=== PATIENT | female | born 1955 | race Caucasian/White ===

== ENCOUNTER 2016-12-16 11:41 | Emergency (ER) | payer OTHER ==
[~2016-12-16] VITALS: Ht 162.6 cm; Wt 78.2 kg
[2016-12-16] MEDS ORDERED: QUET25TA PO (11:54)
[2016-12-16] MEDS ORDERED: PROP10TA73 PO (11:54)
[2016-12-16] MEDS ORDERED: LISI-660 PO (11:54)
[2016-12-16] MEDS ORDERED: AMLO-511 PO (11:54)
[2016-12-16 14:10] VITALS: BP 165/80
== END 2016-12-16 15:01 | disposition home or self-care (01) ==
LOC: EMS 11:42
DX: F41.9 Anxiety disorder, unspecified (principal); F31.9 Bipolar disorder, unspecified; I10 Essential (primary) hypertension; K21.9 Gastro-esophageal reflux disease without esophagitis
CPT/HCPCS: 99284

== ENCOUNTER 2016-12-19 11:44 | Inpatient (IN) | payer MEDICAID, SELFPAY ==
[~2016-12-19] VITALS: Ht 162.6 cm; Wt 75.8 kg
[~2016-12-19 11:44] MED LIST: AMLO-511 PO; LISI-660 PO; PROP10TA73 PO; QUET25TA PO
[2016-12-19] MEDS ORDERED: HydrOXYzine PAMOATE 50 MG CAPSULE PO PRN (14:00)
[2016-12-19] MEDS ORDERED: PROMETHAZINE HCL 25 MG TABLET PO PRN (14:00)
[2016-12-19] MEDS ORDERED: ZOLPIDEM TARTRATE 10 MG TABLET PO PRN (14:00)
[2016-12-19] MEDS ORDERED: TUBERCULIN, PURIFIED PROTEIN DERIVATIVE 5 TU/0.1 ML SYG ID ONE (14:00)
[2016-12-19] MEDS ORDERED: QUEtiapine FUMARATE 100 MG TABLET PO PRN (14:00)
[2016-12-19] MEDS ORDERED: MAG HYDROX/AL HYDROX/SIMETH ES 30 ML SUSPENSION UDCUP PO PRN (14:00)
[2016-12-19] MEDS ORDERED: GuaiFENesin/D-METHORPHAN [SUGAR-FREE] 200-20MG/10 ML SYRUP UDCUP PO PRN (14:00)
[2016-12-19] MEDS ORDERED: MAGNESIUM HYDROXIDE SUSPENSION 30 ML UDCUP PO PRN (14:00)
[2016-12-19] MEDS ORDERED: LOPERAMIDE HCL 2 MG CAPSULE PO PRN (14:00)
[2016-12-19] MEDS ORDERED: ACETAMINOPHEN 325 MG TABLET PO PRN (14:00)
[2016-12-19 15:45] VITALS: BP 155/84
[2016-12-19] MEDS: QUEtiapine FUMARATE 25 MG TABLET PO SCH (17:59)
[2016-12-19] MEDS: THIAMINE HCL 100 MG TABLET PO SCH (17:59)
[2016-12-19] MEDS: LORazepam 1 MG TABLET PO PRN (18:33)
[2016-12-19 18:59] VITALS: BP 134/89
[2016-12-19] MEDS: QUEtiapine FUMARATE 100 MG TABLET PO SCH (20:20)
[2016-12-20 06:00] VITALS: BP 130/80
[2016-12-20 08:20] LABS: BASOPHILS % (AUTO) 0.4 % (0.0-2.0); EOSINOPHILS % (AUTO) 1.3 % (1.0-6.0); HEMATOCRIT 37.1 % (36-46); HEMOGLOBIN 12.8 g/dL (12.0-16.0); LYMPHOCYTES # (AUTO) 2.2 K/uL (1.0-4.8); LYMPHOCYTES % (AUTO) 36.7 % (22.0-44.0); MEAN CORPUSCULAR HEMOGLOBIN 31.1 pg (26.0-34.0); MEAN CORPUSCULAR HGB CONC 34.5 G/dL (31.0-37.0); MEAN CORPUSCULAR VOLUME 90 fL (80-100); MONOCYTES # (AUTO) 0.5 K/uL (0.1-1.0); MONOCYTES % (AUTO) 8.9 % (2.0-9.0); NEUTROPHILS # (AUTO) 3.2 K/uL (1.8-7.7); NEUTROPHILS % (AUTO) 52.7 % (40.0-70.0); PLATELET COUNT (AUTO) 204 K/uL (150-450); RED BLOOD CELL COUNT(AUTO) 4.12 MIL/uL (4.00-5.20); RED CELL DISTRIBUTION WIDTH 14.1 % (11.5-14.5); WHITE BLOOD COUNT (AUTO) 6.1 K/uL (4.5-11.0)
[2016-12-20 08:23] VITALS: BP 148/90
[2016-12-20 08:32] LABS: HEMOGLOBIN A1C 6.1 % (4.5-6.2)
[2016-12-20] MEDS: MULTIVITAMINS WITH MINERALS, THERAPEUTIC TABLET PO SCH (08:48)
[2016-12-20] MEDS: QUEtiapine FUMARATE 25 MG TABLET PO SCH ×3 (08:49→16:20)
[2016-12-20] MEDS: FOLIC ACID 1 MG TABLET PO SCH (08:50)
[2016-12-20] MEDS: THIAMINE HCL 100 MG TABLET PO SCH ×2 (08:50→16:20)
[2016-12-20 09:49] LABS: ALANINE AMINOTRANSFERASE 19 U/L (12-78); ALBUMIN 3.6 g/dL (3.4-5.0); ANION GAP 7 mmol/L (8-16); ASPARTATE AMINOTRANSFERASE 17 U/L (15-37); BILIRUBIN,TOTAL 0.5 mg/dL (0.1-1.0); CALCIUM, TOTAL 9.2 mg/dL (8.8-10.5); CARBON DIOXIDE 29 mmol/L (22-29); CHLORIDE 105 mmol/L (98-107); CHOL/HDL RATIO 3.9 (3.9-5.7); GLOMERULAR FILTR. RATE CALC > 60 mL/min (>60); POTASSIUM 3.3 mmol/L (3.5-5.1); SODIUM SERUM 141 mmol/L (136-145); THYROID STIMULATING HORMONE 0.81 uIU/mL (0.36-3.74); TOTAL PROTEIN, SERUM 6.9 g/dL (6.4-8.2); UREA NITROGEN, BLOOD 21 mg/dL (7-18)
[2016-12-20 16:05] VITALS: BP 140/84
[2016-12-20] MEDS: PROPRANOLOL HCL 10 MG TABLET PO SCH (16:19)
[2016-12-20] MEDS: AmLODIPine BESYLATE 5 MG TABLET PO SCH (16:19)
[2016-12-20] MEDS: LISINOPRIL 5 MG TABLET PO SCH (16:20)
[2016-12-20] MEDS ORDERED: POTASSIUM CHLORIDE 20 MEQ ER TABLET PO ONE (18:00)
[2016-12-20] MEDS: QUEtiapine FUMARATE 100 MG TABLET PO SCH (20:38)
[2016-12-21 00:01] VITALS: BP 111/60
[2016-12-21 09:19] VITALS: BP 138/87
[2016-12-21] MEDS: AmLODIPine BESYLATE 5 MG TABLET PO SCH (09:29)
[2016-12-21] MEDS: THIAMINE HCL 100 MG TABLET PO SCH ×2 (09:29→16:47)
[2016-12-21] MEDS: LISINOPRIL 5 MG TABLET PO SCH (09:29)
[2016-12-21] MEDS: MULTIVITAMINS WITH MINERALS, THERAPEUTIC TABLET PO SCH (09:29)
[2016-12-21] MEDS: QUEtiapine FUMARATE 25 MG TABLET PO SCH ×3 (09:29→16:48)
[2016-12-21] MEDS: PROPRANOLOL HCL 10 MG TABLET PO SCH (09:29)
[2016-12-21] MEDS: FOLIC ACID 1 MG TABLET PO SCH (09:29)
[2016-12-21] MEDS: LamoTRIgine 25 MG TABLET PO SCH (09:29)
[2016-12-21 16:45] VITALS: BP 150/98
[2016-12-21] MEDS: LORazepam 1 MG TABLET PO PRN (17:11)
[2016-12-21 18:05] VITALS: BP_SYST 15; BP_SYST 150; BP_DIAS 97
[2016-12-21] MEDS ORDERED: LISINOPRIL 5 MG TABLET PO ONE (19:00)
[2016-12-21] MEDS ORDERED: PROPRANOLOL HCL 10 MG TABLET PO ONE (19:00)
[2016-12-21 20:12] VITALS: BP 137/73
[2016-12-21] MEDS: QUEtiapine FUMARATE 100 MG TABLET PO SCH (20:36)
[2016-12-22 02:51] VITALS: BP 116/66
[2016-12-22] MEDS: AmLODIPine BESYLATE 5 MG TABLET PO SCH (08:09)
[2016-12-22] MEDS: QUEtiapine FUMARATE 25 MG TABLET PO SCH ×2 (08:09→15:59)
[2016-12-22] MEDS: LamoTRIgine 25 MG TABLET PO SCH (08:09)
[2016-12-22] MEDS: FOLIC ACID 1 MG TABLET PO SCH (08:09)
[2016-12-22] MEDS: LISINOPRIL 5 MG TABLET PO SCH (08:09)
[2016-12-22] MEDS: MULTIVITAMINS WITH MINERALS, THERAPEUTIC TABLET PO SCH (08:09)
[2016-12-22] MEDS: THIAMINE HCL 100 MG TABLET PO SCH ×2 (08:09→15:56)
[2016-12-22] MEDS: PROPRANOLOL HCL 10 MG TABLET PO SCH (08:09)
[2016-12-22 08:20] VITALS: BP 180/103
[2016-12-22 10:16] VITALS: BP 156/94
[2016-12-22] MEDS ORDERED: LAMO25 PO (11:50)
[2016-12-22] MEDS ORDERED: QUET100T33 PO (11:50)
[2016-12-22] MEDS ORDERED: QUET25TA34 PO (11:50)
[2016-12-22 16:19] VITALS: BP 144/76
[2016-12-22] MEDS: LORazepam 1 MG TABLET PO PRN (17:59)
[2016-12-22 20:25] VITALS: BP 138/75
[2016-12-22] MEDS: QUEtiapine FUMARATE 100 MG TABLET PO SCH (20:31)
[2016-12-23 07:18] VITALS: BP 135/72
[2016-12-23] MEDS: LORazepam 1 MG TABLET PO PRN ×2 (07:53→12:42)
[2016-12-23 08:00] VITALS: BP 162/96
[2016-12-23] MEDS: LISINOPRIL 5 MG TABLET PO SCH (08:42)
[2016-12-23] MEDS: AmLODIPine BESYLATE 5 MG TABLET PO SCH (08:42)
[2016-12-23] MEDS: LamoTRIgine 25 MG TABLET PO SCH (08:42)
[2016-12-23] MEDS: QUEtiapine FUMARATE 25 MG TABLET PO SCH (08:42)
[2016-12-23] MEDS: PROPRANOLOL HCL 10 MG TABLET PO SCH (08:42)
[2016-12-23] MEDS: THIAMINE HCL 100 MG TABLET PO SCH (08:42)
[2016-12-23] MEDS: FOLIC ACID 1 MG TABLET PO SCH (08:43)
[2016-12-23] MEDS: MULTIVITAMINS WITH MINERALS, THERAPEUTIC TABLET PO SCH (08:43)
[2016-12-23] MEDS ORDERED: LAMO25 PO (09:34)
[2016-12-23] MEDS ORDERED: QUET25TA PO (09:34)
== END 2016-12-23 13:25 | disposition home or self-care (01) | DRG 753 ==
LOC: B2S 15:29
PROVIDERS: ADMIT Psychiatry & Neurology Psychiatry; ATTEND Psychiatry & Neurology Psychiatry
DX: F31.9 Bipolar disorder, unspecified (principal); Z91.19 Patient's noncompliance with other medical treatment and regimen; F41.0 Panic disorder [episodic paroxysmal anxiety]; K21.9 Gastro-esophageal reflux disease without esophagitis; M19.90 Unspecified osteoarthritis, unspecified site; Z68.28 Body mass index [BMI] 28.0-28.9, adult
CPT/HCPCS: 83036; 84132; 84439; 84443; 86592

== ENCOUNTER 2016-12-28 19:33 | Inpatient (IN) | payer MEDICAID, SELFPAY ==
[~2016-12-28] VITALS: Ht 162.6 cm; Wt 76.7 kg
[~2016-12-28 19:33] MED LIST changes: +LAMO25 PO; +QUET100T33 PO; +QUET25TA34 PO
[2016-12-28 22:48] VITALS: BP 106/68
[2016-12-28] MEDS ORDERED: ZOLPIDEM TARTRATE 10 MG TABLET PO PRN (23:00)
[2016-12-28] MEDS ORDERED: QUEtiapine FUMARATE 100 MG TABLET PO PRN (23:00)
[2016-12-29 00:43] VITALS: BP 108/69
[2016-12-29 07:49] LABS: BASOPHILS % (AUTO) 0.4 % (0.0-2.0); EOSINOPHILS % (AUTO) 1.9 % (1.0-6.0); HEMATOCRIT 36.1 % (36-46); HEMOGLOBIN 12.3 g/dL (12.0-16.0); LYMPHOCYTES # (AUTO) 2.9 K/uL (1.0-4.8); LYMPHOCYTES % (AUTO) 38.4 % (22.0-44.0); MEAN CORPUSCULAR HEMOGLOBIN 31.3 pg (26.0-34.0); MEAN CORPUSCULAR HGB CONC 34.1 G/dL (31.0-37.0); MEAN CORPUSCULAR VOLUME 92 fL (80-100); MONOCYTES # (AUTO) 0.7 K/uL (0.1-1.0); MONOCYTES % (AUTO) 9.5 % (2.0-9.0); NEUTROPHILS # (AUTO) 3.7 K/uL (1.8-7.7); NEUTROPHILS % (AUTO) 49.8 % (40.0-70.0); PLATELET COUNT (AUTO) 188 K/uL (150-450); RED BLOOD CELL COUNT(AUTO) 3.94 MIL/uL (4.00-5.20); RED CELL DISTRIBUTION WIDTH 13.9 % (11.5-14.5); WHITE BLOOD COUNT (AUTO) 7.5 K/uL (4.5-11.0)
[2016-12-29 08:17] LABS: ALANINE AMINOTRANSFERASE 22 U/L (12-78); ALBUMIN 3.3 g/dL (3.4-5.0); ANION GAP 6 mmol/L (8-16); ASPARTATE AMINOTRANSFERASE 13 U/L (15-37); BILIRUBIN,TOTAL 0.3 mg/dL (0.1-1.0); CALCIUM, TOTAL 9.4 mg/dL (8.8-10.5); CARBON DIOXIDE 31 mmol/L (22-29); CHLORIDE 106 mmol/L (98-107); CHOL/HDL RATIO 4.1 (3.9-5.7); CREATININE 0.85 mg/dL (0.60-1.30); GLOMERULAR FILTR. RATE CALC > 60 mL/min (>60); SODIUM SERUM 143 mmol/L (136-145); THYROID STIMULATING HORMONE 1.02 uIU/mL (0.36-3.74); TOTAL PROTEIN, SERUM 6.7 g/dL (6.4-8.2); UREA NITROGEN, BLOOD 17 mg/dL (7-18)
[2016-12-29 08:45] VITALS: BP 148/72
[2016-12-29] MEDS ORDERED: PROPRANOLOL HCL 10 MG TABLET PO SCH (10:15)
[2016-12-29] MEDS: AmLODIPine BESYLATE 5 MG TABLET PO SCH (10:40)
[2016-12-29] MEDS: LISINOPRIL 5 MG TABLET PO SCH (10:40)
[2016-12-29] MEDS: LORazepam 1 MG TABLET PO PRN (13:12)
[2016-12-29 14:50] VITALS: BP 159/89
[2016-12-29] MEDS ORDERED: PROPRANOLOL HCL 10 MG TABLET PO ONE (15:00)
[2016-12-29] MEDS ORDERED: PROPRANOLOL HCL 20 MG TABLET PO ONE (15:00)
[2016-12-29 17:26] VITALS: BP 150/97
[2016-12-29] MEDS: QUEtiapine FUMARATE 25 MG TABLET PO SCH (17:34)
[2016-12-29 19:00] VITALS: BP 138/78
[2016-12-29] MEDS: QUEtiapine FUMARATE 100 MG TABLET PO SCH (21:24)
[2016-12-30 06:24] VITALS: BP 157/96
[2016-12-30] MEDS: QUEtiapine FUMARATE 25 MG TABLET PO SCH ×2 (08:42→16:07)
[2016-12-30] MEDS: AmLODIPine BESYLATE 5 MG TABLET PO SCH (08:42)
[2016-12-30] MEDS: LISINOPRIL 5 MG TABLET PO SCH (08:42)
[2016-12-30] MEDS: PROPRANOLOL HCL 20 MG TABLET PO SCH (08:42)
[2016-12-30 11:33] VITALS: BP 150/78
[2016-12-30] MEDS: LORazepam 1 MG TABLET PO PRN (15:57)
[2016-12-30 18:07] VITALS: BP 128/78
[2016-12-30] MEDS: QUEtiapine FUMARATE 100 MG TABLET PO SCH (20:23)
[2016-12-31 06:08] VITALS: BP 130/80
[2016-12-31] MEDS: PROPRANOLOL HCL 20 MG TABLET PO SCH (08:17)
[2016-12-31] MEDS: LISINOPRIL 5 MG TABLET PO SCH (08:17)
[2016-12-31] MEDS: AmLODIPine BESYLATE 5 MG TABLET PO SCH (08:17)
[2016-12-31] MEDS: QUEtiapine FUMARATE 25 MG TABLET PO SCH ×2 (08:17→16:47)
[2016-12-31] MEDS: LORazepam 1 MG TABLET PO PRN ×2 (10:16→15:04)
[2016-12-31 12:25] VITALS: BP 143/96
[2016-12-31] MEDS ORDERED: AmLODIPine BESYLATE 5 MG TABLET PO ONE (14:00)
[2016-12-31] MEDS ORDERED: LISINOPRIL 10 MG TABLET PO ONE (14:00)
[2016-12-31 16:35] VITALS: BP 143/90
[2016-12-31 18:00] VITALS: BP 108/69
[2016-12-31 20:04] VITALS: BP_SYST 106; BP_SYST 110; BP_DIAS 66; BP_DIAS 70
[2016-12-31] MEDS: QUEtiapine FUMARATE 100 MG TABLET PO SCH (21:19)
[2016-12-31 22:00] VITALS: BP 123/75
[2017-01-01 01:25] VITALS: BP 118/66
[2017-01-01] MEDS: PROPRANOLOL HCL 20 MG TABLET PO SCH (08:15)
[2017-01-01] MEDS: AmLODIPine BESYLATE 10 MG TABLET PO SCH (08:15)
[2017-01-01] MEDS: QUEtiapine FUMARATE 25 MG TABLET PO SCH ×2 (08:15→16:15)
[2017-01-01] MEDS: LISINOPRIL 20 MG TABLET PO SCH (08:16)
[2017-01-01 08:28] VITALS: BP 157/92
[2017-01-01] MEDS: LORazepam 1 MG TABLET PO PRN (16:15)
[2017-01-01 16:20] VITALS: BP_SYST 133; BP_SYST 155; BP_DIAS 74; BP_DIAS 91
[2017-01-01] MEDS: QUEtiapine FUMARATE 100 MG TABLET PO SCH (20:15)
[2017-01-02 00:08] VITALS: BP 113/69
[2017-01-02 08:05] VITALS: BP 145/78
[2017-01-02] MEDS: LISINOPRIL 20 MG TABLET PO SCH (08:53)
[2017-01-02] MEDS: QUEtiapine FUMARATE 25 MG TABLET PO SCH ×2 (08:53→16:08)
[2017-01-02] MEDS: PROPRANOLOL HCL 20 MG TABLET PO SCH (08:54)
[2017-01-02] MEDS: AmLODIPine BESYLATE 10 MG TABLET PO SCH (08:54)
[2017-01-02] MEDS ORDERED: PROMETHAZINE HCL 25 MG TABLET PO PRN (13:00)
[2017-01-02] MEDS ORDERED: ACETAMINOPHEN 325 MG TABLET PO PRN (13:00)
[2017-01-02] MEDS ORDERED: HydrOXYzine PAMOATE 50 MG CAPSULE PO PRN (13:00)
[2017-01-02] MEDS ORDERED: MAG HYDROX/AL HYDROX/SIMETH ES 30 ML SUSPENSION UDCUP PO PRN (13:00)
[2017-01-02] MEDS ORDERED: GuaiFENesin/D-METHORPHAN [SUGAR-FREE] 200-20MG/10 ML SYRUP UDCUP PO PRN (13:00)
[2017-01-02] MEDS ORDERED: LOPERAMIDE HCL 2 MG CAPSULE PO PRN (13:00)
[2017-01-02] MEDS ORDERED: MAGNESIUM HYDROXIDE SUSPENSION 30 ML UDCUP PO PRN (13:00)
[2017-01-02] MEDS ORDERED: LAMO25 PO (15:43)
[2017-01-02] MEDS ORDERED: QUET25TA34 PO (15:43)
[2017-01-02] MEDS ORDERED: QUET100T33 PO (15:43)
[2017-01-02 16:07] VITALS: BP 138/75
[2017-01-02] MEDS: THIAMINE HCL 100 MG TABLET PO SCH (16:08)
[2017-01-02] MEDS: QUEtiapine FUMARATE 100 MG TABLET PO SCH (20:32)
[2017-01-03 06:37] VITALS: BP 120/72
[2017-01-03] MEDS: THIAMINE HCL 100 MG TABLET PO SCH (08:10)
[2017-01-03] MEDS: PROPRANOLOL HCL 20 MG TABLET PO SCH (08:11)
[2017-01-03] MEDS: QUEtiapine FUMARATE 25 MG TABLET PO SCH (08:11)
[2017-01-03] MEDS: AmLODIPine BESYLATE 10 MG TABLET PO SCH (08:11)
[2017-01-03] MEDS: LISINOPRIL 20 MG TABLET PO SCH (08:11)
[2017-01-03 08:30] VITALS: BP 154/89
[2017-01-03] MEDS ORDERED: LamoTRIgine 25 MG TABLET PO SCH (09:00)
[2017-01-03] MEDS ORDERED: MULTIVITAMINS WITH MINERALS, THERAPEUTIC TABLET PO SCH (09:00)
[2017-01-03] MEDS ORDERED: FOLIC ACID 1 MG TABLET PO SCH (09:00)
[2017-01-03] MEDS ORDERED: PROP10TA72 PO (09:48)
[2017-01-03] MEDS ORDERED: LISI-662 PO (09:48)
[2017-01-03] MEDS ORDERED: AMLO-512 PO (09:48)
[2017-01-03] MEDS ORDERED: QUET100T PO (10:02)
== END 2017-01-03 13:20 | disposition home or self-care (01) | DRG 750 ==
LOC: B2S 22:44 → EDSTATUS 22:57
PROVIDERS: ADMIT Psychiatry & Neurology Psychiatry; ATTEND Psychiatry & Neurology Psychiatry
DX: F25.1 Schizoaffective disorder, depressive type (principal); Z91.19 Patient's noncompliance with other medical treatment and regimen; I10 Essential (primary) hypertension; B18.2 Chronic viral hepatitis C; F41.0 Panic disorder [episodic paroxysmal anxiety]; G47.00 Insomnia, unspecified; M19.90 Unspecified osteoarthritis, unspecified site; Z79.899 Other long term (current) drug therapy
CPT/HCPCS: 84439; 84443; 87081

== ENCOUNTER 2017-01-18 11:16 | Emergency (ER) | payer OTHER ==
[~2017-01-18] VITALS: Ht 162.6 cm; Wt 76.3 kg
[~2017-01-18 11:16] MED LIST changes: -AMLO-511 PO; +AMLO-512 PO; -LISI-660 PO; +LISI-662 PO; +PROP10TA72 PO; -PROP10TA73 PO; +QUET100T PO; -QUET25TA PO
[2017-01-18] MEDS ORDERED: SERT50TA12 PO (11:47)
[2017-01-18] MEDS ORDERED: GABA-531 PO (11:47)
[2017-01-18] MEDS ORDERED: TRAZ-147 PO (11:47)
[2017-01-18] MEDS ORDERED: LORazepam 1 MG TABLET PO ONE (15:00)
[2017-01-18 15:30] VITALS: BP 140/83
== END 2017-01-18 15:45 | disposition home or self-care (01) ==
LOC: EMS 11:17
DX: F41.9 Anxiety disorder, unspecified (principal); F31.9 Bipolar disorder, unspecified; K21.9 Gastro-esophageal reflux disease without esophagitis; I10 Essential (primary) hypertension; Z91.19 Patient's noncompliance with other medical treatment and regimen
CPT/HCPCS: 99284

== ENCOUNTER 2017-01-27 13:58 | Inpatient (IN) | payer MEDICAID, OTHER, SELFPAY ==
[~2017-01-27] VITALS: Ht 162.6 cm; Wt 72.6 kg
[~2017-01-27 13:58] MED LIST changes: +GABA-531 PO; -LAMO25 PO; -QUET100T PO; -QUET100T33 PO; -QUET25TA34 PO; +SERT50TA12 PO; +TRAZ-147 PO
[2017-01-27 16:52] LABS: BASOPHILS % (AUTO) 0.8 % (0.0-2.0); EOSINOPHILS % (AUTO) 0.5 % (1.0-6.0); HEMATOCRIT 45.2 % (36-46); HEMOGLOBIN 15.2 g/dL (12.0-16.0); LYMPHOCYTES # (AUTO) 2.6 K/uL (1.0-4.8); LYMPHOCYTES % (AUTO) 25.5 % (22.0-44.0); MEAN CORPUSCULAR HEMOGLOBIN 31.2 pg (26.0-34.0); MEAN CORPUSCULAR HGB CONC 33.7 G/dL (31.0-37.0); MEAN CORPUSCULAR VOLUME 93 fL (80-100); MONOCYTES # (AUTO) 0.7 K/uL (0.1-1.0); MONOCYTES % (AUTO) 7.3 % (2.0-9.0); NEUTROPHILS # (AUTO) 6.6 K/uL (1.8-7.7); NEUTROPHILS % (AUTO) 65.9 % (40.0-70.0); PLATELET COUNT (AUTO) 269 K/uL (150-450); RED BLOOD CELL COUNT(AUTO) 4.88 MIL/uL (4.00-5.20); RED CELL DISTRIBUTION WIDTH 14.5 % (11.5-14.5)
[2017-01-27 17:12] LABS: ANION GAP 7 mmol/L (8-16); CARBON DIOXIDE 30 mmol/L (22-29); CHLORIDE 103 mmol/L (98-107); CREATININE 0.93 mg/dL (0.60-1.30); GLUCOSE,RANDOM 105 mg/dL (70-110); POTASSIUM 4.5 mmol/L (3.5-5.1); SODIUM SERUM 140 mmol/L (136-145); UREA NITROGEN, BLOOD 13 mg/dL (7-18)
[2017-01-27 17:13] LABS: CALCIUM, TOTAL 10.2 mg/dL (8.8-10.5); GLOMERULAR FILTR. RATE CALC > 60 mL/min (>60)
[2017-01-27 17:18] LABS: ALANINE AMINOTRANSFERASE 30 U/L (12-78); ALBUMIN 4.1 g/dL (3.4-5.0); ALKALINE PHOSPHATASE 145 U/L (46-116); ASPARTATE AMINOTRANSFERASE 18 U/L (15-37); BILIRUBIN,TOTAL 0.5 mg/dL (0.1-1.0); TOTAL PROTEIN, SERUM 8.5 g/dL (6.4-8.2)
[2017-01-27] MEDS ORDERED: LORazepam 2 MG TABLET PO ONE (19:45)
[2017-01-27] MEDS ORDERED: AmLODIPine BESYLATE 5 MG TABLET PO ONE (20:15)
[2017-01-27] MEDS ORDERED: LISINOPRIL 10 MG TABLET PO ONE (20:15)
[2017-01-27 22:39] VITALS: BP 133/79
[2017-01-28 06:19] VITALS: BP 135/81
[2017-01-28 08:14] VITALS: BP 161/98
[2017-01-28] MEDS: AmLODIPine BESYLATE 10 MG TABLET PO SCH (13:12)
[2017-01-28] MEDS: GABAPENTIN 300 MG CAPSULE PO SCH (13:12)
[2017-01-28] MEDS: PROPRANOLOL HCL 20 MG TABLET PO SCH (13:18)
[2017-01-28 16:24] VITALS: BP 126/76
[2017-01-28] MEDS ORDERED: IBUPROFEN 400 MG TABLET PO PRN (19:45)
[2017-01-28] MEDS ORDERED: ACETAMINOPHEN 325 MG TABLET PO PRN (19:45)
[2017-01-28] MEDS: LORazepam 1 MG TABLET PO PRN (20:57)
[2017-01-28] MEDS: HALOPERIDOL 5 MG TABLET PO PRN (20:57)
[2017-01-29 05:54] VITALS: BP 121/67
[2017-01-29] MEDS: LORazepam 1 MG TABLET PO PRN (07:18)
[2017-01-29 08:00] VITALS: BP 121/66
[2017-01-29] MEDS: AmLODIPine BESYLATE 10 MG TABLET PO SCH (08:58)
[2017-01-29] MEDS: GABAPENTIN 300 MG CAPSULE PO SCH (08:58)
[2017-01-29] MEDS: LISINOPRIL 20 MG TABLET PO SCH (08:58)
[2017-01-29] MEDS: PROPRANOLOL HCL 20 MG TABLET PO SCH (08:58)
[2017-01-29 16:37] VITALS: BP 130/92
[2017-01-29] MEDS ORDERED: PROP20 PO (17:24)
[2017-01-29] MEDS: QUEtiapine FUMARATE 200 MG TABLET PO SCH (21:24)
[2017-01-30 08:00] VITALS: BP 109/65
[2017-01-30] MEDS: PROPRANOLOL HCL 20 MG TABLET PO SCH (09:00)
[2017-01-30] MEDS: AmLODIPine BESYLATE 10 MG TABLET PO SCH (09:00)
[2017-01-30] MEDS: LISINOPRIL 20 MG TABLET PO SCH (09:00)
[2017-01-30] MEDS: QUEtiapine FUMARATE 100 MG TABLET PO SCH (10:18)
[2017-01-30] MEDS: GABAPENTIN 300 MG CAPSULE PO SCH (10:18)
[2017-01-30] MEDS ORDERED: LOPERAMIDE HCL 2 MG CAPSULE PO PRN (10:30)
[2017-01-30 16:15] VITALS: BP 118/70
[2017-01-30] MEDS: QUEtiapine FUMARATE 200 MG TABLET PO SCH (21:32)
[2017-01-31 06:51] VITALS: BP 159/91
[2017-01-31] MEDS: PROPRANOLOL HCL 20 MG TABLET PO SCH ×2 (08:24→17:11)
[2017-01-31] MEDS: GABAPENTIN 300 MG CAPSULE PO SCH ×2 (08:24→17:13)
[2017-01-31] MEDS: QUEtiapine FUMARATE 100 MG TABLET PO SCH (08:24)
[2017-01-31] MEDS: LISINOPRIL 20 MG TABLET PO SCH (08:24)
[2017-01-31] MEDS: AmLODIPine BESYLATE 10 MG TABLET PO SCH (08:24)
[2017-01-31 10:57] VITALS: BP 144/81
[2017-01-31] MEDS ORDERED: MAGNESIUM HYDROXIDE SUSPENSION 30 ML UDCUP PO PRN (16:15)
[2017-01-31] MEDS ORDERED: MAG HYDROX/AL HYDROX/SIMETH ES 30 ML SUSPENSION UDCUP PO PRN (16:15)
[2017-01-31] MEDS ORDERED: ACETAMINOPHEN 325 MG TABLET PO PRN (16:15)
[2017-01-31] MEDS ORDERED: HydrOXYzine PAMOATE 50 MG CAPSULE PO PRN (16:15)
[2017-01-31] MEDS ORDERED: GuaiFENesin/D-METHORPHAN [SUGAR-FREE] 200-20MG/10 ML SYRUP UDCUP PO PRN (16:15)
[2017-01-31] MEDS ORDERED: PROMETHAZINE HCL 25 MG TABLET PO PRN (16:15)
[2017-01-31] MEDS ORDERED: LOPERAMIDE HCL 2 MG CAPSULE PO PRN (16:15)
[2017-01-31 16:22] VITALS: BP 135/82
[2017-01-31] MEDS ORDERED: PROPRANOLOL HCL 10 MG TABLET PO SCH (17:00)
[2017-01-31] MEDS ORDERED: GABAPENTIN 300 MG CAPSULE PO SCH (17:00)
[2017-01-31] MEDS: THIAMINE HCL 100 MG TABLET PO SCH (17:12)
[2017-01-31] MEDS: QUEtiapine FUMARATE 200 MG TABLET PO SCH (21:26)
[2017-02-01] MEDS: THIAMINE HCL 100 MG TABLET PO SCH ×2 (08:25→16:37)
[2017-02-01] MEDS: QUEtiapine FUMARATE 100 MG TABLET PO SCH (08:25)
[2017-02-01] MEDS: PROPRANOLOL HCL 20 MG TABLET PO SCH (08:25)
[2017-02-01] MEDS: AmLODIPine BESYLATE 10 MG TABLET PO SCH (08:25)
[2017-02-01] MEDS: MULTIVITAMINS WITH MINERALS, THERAPEUTIC TABLET PO SCH (08:25)
[2017-02-01] MEDS: GABAPENTIN 300 MG CAPSULE PO SCH (08:25)
[2017-02-01] MEDS: FOLIC ACID 1 MG TABLET PO SCH (08:25)
[2017-02-01] MEDS: LISINOPRIL 20 MG TABLET PO SCH (08:26)
[2017-02-01 08:30] VITALS: BP 120/75
[2017-02-01] MEDS ORDERED: BENZOCAINE/MENTHOL LOZENGE [8 LOZENGES/PACKET] PO PRN (14:00)
[2017-02-01 16:04] VITALS: BP 105/64
[2017-02-01] MEDS: QUEtiapine FUMARATE 200 MG TABLET PO SCH (20:42)
[2017-02-01] MEDS: ZOLPIDEM TARTRATE 10 MG TABLET PO PRN (21:44)
[2017-02-02 08:54] VITALS: BP 135/91
[2017-02-02] MEDS: GABAPENTIN 300 MG CAPSULE PO SCH (09:45)
[2017-02-02] MEDS: AmLODIPine BESYLATE 10 MG TABLET PO SCH (09:46)
[2017-02-02] MEDS: THIAMINE HCL 100 MG TABLET PO SCH ×2 (09:46→16:32)
[2017-02-02] MEDS: PROPRANOLOL HCL 20 MG TABLET PO SCH (09:46)
[2017-02-02] MEDS: MULTIVITAMINS WITH MINERALS, THERAPEUTIC TABLET PO SCH (09:46)
[2017-02-02] MEDS: QUEtiapine FUMARATE 100 MG TABLET PO SCH (09:46)
[2017-02-02] MEDS: FOLIC ACID 1 MG TABLET PO SCH (09:46)
[2017-02-02] MEDS: LISINOPRIL 20 MG TABLET PO SCH (09:46)
[2017-02-02 16:51] VITALS: BP 141/86
[2017-02-02] MEDS: ZOLPIDEM TARTRATE 10 MG TABLET PO PRN (20:35)
[2017-02-02] MEDS: QUEtiapine FUMARATE 200 MG TABLET PO SCH (20:36)
[2017-02-03 09:01] VITALS: BP 147/90
[2017-02-03] MEDS: GABAPENTIN 300 MG CAPSULE PO SCH (09:27)
[2017-02-03] MEDS: AmLODIPine BESYLATE 10 MG TABLET PO SCH (09:27)
[2017-02-03] MEDS: LISINOPRIL 20 MG TABLET PO SCH (09:28)
[2017-02-03] MEDS: QUEtiapine FUMARATE 100 MG TABLET PO SCH (09:28)
[2017-02-03] MEDS: PROPRANOLOL HCL 20 MG TABLET PO SCH (09:28)
[2017-02-03] MEDS: MULTIVITAMINS WITH MINERALS, THERAPEUTIC TABLET PO SCH (09:28)
[2017-02-03] MEDS: THIAMINE HCL 100 MG TABLET PO SCH ×2 (09:28→16:08)
[2017-02-03] MEDS: FOLIC ACID 1 MG TABLET PO SCH (09:28)
[2017-02-03 17:00] VITALS: BP 126/83
[2017-02-03] MEDS: LORazepam 1 MG TABLET PO PRN (18:37)
[2017-02-03] MEDS: HALOPERIDOL 5 MG TABLET PO PRN (18:37)
[2017-02-03] MEDS: QUEtiapine FUMARATE 200 MG TABLET PO SCH (20:27)
[2017-02-03] MEDS: ZOLPIDEM TARTRATE 10 MG TABLET PO PRN (20:28)
[2017-02-04] MEDS: AmLODIPine BESYLATE 10 MG TABLET PO SCH (09:13)
[2017-02-04] MEDS: PROPRANOLOL HCL 20 MG TABLET PO SCH (09:13)
[2017-02-04] MEDS: QUEtiapine FUMARATE 100 MG TABLET PO SCH (09:14)
[2017-02-04] MEDS: THIAMINE HCL 100 MG TABLET PO SCH ×2 (09:14→16:21)
[2017-02-04] MEDS: MULTIVITAMINS WITH MINERALS, THERAPEUTIC TABLET PO SCH (09:14)
[2017-02-04] MEDS: LISINOPRIL 20 MG TABLET PO SCH (09:14)
[2017-02-04] MEDS: GABAPENTIN 300 MG CAPSULE PO SCH (09:14)
[2017-02-04] MEDS: FOLIC ACID 1 MG TABLET PO SCH (09:14)
[2017-02-04 12:44] VITALS: BP 142/80
[2017-02-04 17:48] VITALS: BP 139/87
[2017-02-04] MEDS: QUEtiapine FUMARATE 200 MG TABLET PO SCH (20:23)
[2017-02-04] MEDS: ZOLPIDEM TARTRATE 10 MG TABLET PO PRN (22:40)
[2017-02-05 08:49] VITALS: BP 103/101
[2017-02-05] MEDS: GABAPENTIN 300 MG CAPSULE PO SCH (09:18)
[2017-02-05] MEDS: PROPRANOLOL HCL 20 MG TABLET PO SCH (09:18)
[2017-02-05] MEDS: QUEtiapine FUMARATE 100 MG TABLET PO SCH (09:18)
[2017-02-05] MEDS: LISINOPRIL 20 MG TABLET PO SCH (09:18)
[2017-02-05] MEDS: AmLODIPine BESYLATE 10 MG TABLET PO SCH (09:19)
[2017-02-05] MEDS: THIAMINE HCL 100 MG TABLET PO SCH ×2 (09:19→16:21)
[2017-02-05] MEDS: MULTIVITAMINS WITH MINERALS, THERAPEUTIC TABLET PO SCH (09:19)
[2017-02-05] MEDS: FOLIC ACID 1 MG TABLET PO SCH (09:20)
[2017-02-05 19:23] VITALS: BP 146/90
[2017-02-05] MEDS: QUEtiapine FUMARATE 200 MG TABLET PO SCH (20:24)
[2017-02-05] MEDS: ZOLPIDEM TARTRATE 10 MG TABLET PO PRN (20:24)
[2017-02-06 08:10] VITALS: BP 156/95
[2017-02-06] MEDS: THIAMINE HCL 100 MG TABLET PO SCH ×2 (10:06→16:14)
[2017-02-06] MEDS: AmLODIPine BESYLATE 10 MG TABLET PO SCH (10:06)
[2017-02-06] MEDS: GABAPENTIN 300 MG CAPSULE PO SCH (10:06)
[2017-02-06] MEDS: LISINOPRIL 20 MG TABLET PO SCH (10:06)
[2017-02-06] MEDS: FOLIC ACID 1 MG TABLET PO SCH (10:06)
[2017-02-06] MEDS: QUEtiapine FUMARATE 100 MG TABLET PO SCH (10:06)
[2017-02-06] MEDS: MULTIVITAMINS WITH MINERALS, THERAPEUTIC TABLET PO SCH (10:06)
[2017-02-06] MEDS: PROPRANOLOL HCL 20 MG TABLET PO SCH (10:07)
[2017-02-06] MEDS: ZOLPIDEM TARTRATE 10 MG TABLET PO PRN (20:27)
[2017-02-06] MEDS: QUEtiapine FUMARATE 200 MG TABLET PO SCH (20:27)
[2017-02-06 21:34] VITALS: BP 145/90
[2017-02-07] MEDS: GABAPENTIN 300 MG CAPSULE PO SCH (08:58)
[2017-02-07] MEDS: MULTIVITAMINS WITH MINERALS, THERAPEUTIC TABLET PO SCH (08:59)
[2017-02-07] MEDS: AmLODIPine BESYLATE 10 MG TABLET PO SCH (08:59)
[2017-02-07] MEDS: QUEtiapine FUMARATE 100 MG TABLET PO SCH (08:59)
[2017-02-07] MEDS: THIAMINE HCL 100 MG TABLET PO SCH (08:59)
[2017-02-07] MEDS: PROPRANOLOL HCL 20 MG TABLET PO SCH (09:00)
[2017-02-07] MEDS: LISINOPRIL 20 MG TABLET PO SCH (09:00)
[2017-02-07] MEDS: FOLIC ACID 1 MG TABLET PO SCH (09:00)
[2017-02-07] MEDS ORDERED: QUET100T PO (12:47)
[2017-02-07] MEDS ORDERED: QUET200T PO (12:47)
[2017-02-07] MEDS ORDERED: THIA100 PO (12:49)
[2017-02-07] MEDS ORDERED: MULT-723 PO (12:51)
[2017-02-07] MEDS ORDERED: FOLI1 PO (12:52)
[2017-02-07 13:18] VITALS: BP 155/93
== END 2017-02-07 16:15 | disposition home or self-care (01) | DRG 753 ==
LOC: EMS 13:59 → 3EI 21:32
PROVIDERS: ADMIT Psychiatry & Neurology Psychiatry; ATTEND Psychiatry & Neurology Psychiatry
DX: F31.9 Bipolar disorder, unspecified (principal); I10 Essential (primary) hypertension; F41.9 Anxiety disorder, unspecified; K21.9 Gastro-esophageal reflux disease without esophagitis; M19.90 Unspecified osteoarthritis, unspecified site; Z79.899 Other long term (current) drug therapy
CPT/HCPCS: 84443; 87081; 99285; G0480

== ENCOUNTER 2017-02-10 04:00 | Emergency (ER) | payer MEDICAID, OTHER ==
[~2017-02-10] VITALS: Ht 165.1 cm; Wt 75.0 kg
[~2017-02-10 04:00] MED LIST changes: +FOLI1 PO; +MULT-723 PO; -PROP10TA72 PO; +PROP20 PO; +QUET100T PO; +QUET200T PO; -SERT50TA12 PO; +THIA100 PO; -TRAZ-147 PO
[2017-02-10] MEDS ORDERED: LORazepam 2 MG/ML VIAL IM ONE (05:15)
[2017-02-10] MEDS ORDERED: QUEtiapine FUMARATE 100 MG TABLET PO ONE (05:15)
[2017-02-10 05:17] LABS: BASOPHILS % (AUTO) 0.3 % (0.0-2.0); EOSINOPHILS % (AUTO) 1.2 % (1.0-6.0); HEMATOCRIT 41.8 % (36-46); HEMOGLOBIN 14.4 g/dL (12.0-16.0); LYMPHOCYTES # (AUTO) 2.2 K/uL (1.0-4.8); LYMPHOCYTES % (AUTO) 22.8 % (22.0-44.0); MEAN CORPUSCULAR HEMOGLOBIN 31.6 pg (26.0-34.0); MEAN CORPUSCULAR HGB CONC 34.5 G/dL (31.0-37.0); MEAN CORPUSCULAR VOLUME 92 fL (80-100); MONOCYTES # (AUTO) 0.8 K/uL (0.1-1.0); MONOCYTES % (AUTO) 8.1 % (2.0-9.0); NEUTROPHILS # (AUTO) 6.4 K/uL (1.8-7.7); NEUTROPHILS % (AUTO) 67.6 % (40.0-70.0); PLATELET COUNT (AUTO) 241 K/uL (150-450); RED BLOOD CELL COUNT(AUTO) 4.56 MIL/uL (4.00-5.20); RED CELL DISTRIBUTION WIDTH 14.5 % (11.5-14.5)
[2017-02-10 05:35] LABS: ANION GAP 9 mmol/L (8-16); CALCIUM, TOTAL 9.9 mg/dL (8.8-10.5); CARBON DIOXIDE 29 mmol/L (22-29); CHLORIDE 102 mmol/L (98-107); CREATININE 1.01 mg/dL (0.60-1.30); GLOMERULAR FILTR. RATE CALC 56 mL/min (>60); GLUCOSE,RANDOM 129 mg/dL (70-110); POTASSIUM 4.1 mmol/L (3.5-5.1); SODIUM SERUM 140 mmol/L (136-145); UREA NITROGEN, BLOOD 24 mg/dL (7-18)
[2017-02-10 05:44] LABS: ALANINE AMINOTRANSFERASE 36 U/L (12-78); ALKALINE PHOSPHATASE 148 U/L (46-116); ASPARTATE AMINOTRANSFERASE 36 U/L (15-37); BILIRUBIN,TOTAL 0.6 mg/dL (0.1-1.0); TOTAL PROTEIN, SERUM 8.3 g/dL (6.4-8.2)
[2017-02-10 06:11] VITALS: BP 132/78
== END 2017-02-10 06:15 | disposition home or self-care (01) ==
LOC: EMS 04:01
DX: F41.9 Anxiety disorder, unspecified (principal); F31.4 Bipolar disorder, current episode depressed, severe, without psychotic features; K21.9 Gastro-esophageal reflux disease without esophagitis; I10 Essential (primary) hypertension; Z79.899 Other long term (current) drug therapy
CPT/HCPCS: 80053; 85025; 99284; G0480; J2060

== ENCOUNTER 2017-02-10 19:26 | Inpatient (IN) | payer MEDICAID, OTHER ==
[~2017-02-10] VITALS: Ht 162.6 cm; Wt 73.5 kg
[2017-02-10 19:37] VITALS: BP 154/90
[2017-02-10] MEDS ORDERED: PNEUMOCOCCAL VACCINE POLYVALENT 0.5 ML VIAL [PPSV23] IM ONE (20:45)
[2017-02-10 21:00] VITALS: BP 160/104
[2017-02-10] MEDS: AmLODIPine BESYLATE 10 MG TABLET PO SCH (21:35)
[2017-02-10] MEDS: ZOLPIDEM TARTRATE 10 MG TABLET PO PRN (21:42)
[2017-02-10] MEDS ORDERED: ACETAMINOPHEN 325 MG TABLET PO PRN (22:00)
[2017-02-10] MEDS ORDERED: IBUPROFEN 400 MG TABLET PO PRN (22:00)
[2017-02-10 22:24] VITALS: BP 113/73
[2017-02-11 08:44] VITALS: BP 136/78
[2017-02-11] MEDS: GABAPENTIN 300 MG CAPSULE PO SCH (08:49)
[2017-02-11] MEDS: AmLODIPine BESYLATE 10 MG TABLET PO SCH (08:49)
[2017-02-11] MEDS: THIAMINE HCL 100 MG TABLET PO SCH ×2 (08:49→16:49)
[2017-02-11] MEDS: LISINOPRIL 20 MG TABLET PO SCH (08:49)
[2017-02-11] MEDS: FOLIC ACID 1 MG TABLET PO SCH (08:49)
[2017-02-11] MEDS: PROPRANOLOL HCL 20 MG TABLET PO SCH (08:50)
[2017-02-11] MEDS ORDERED: AmLODIPine BESYLATE 10 MG TABLET PO SCH (09:00)
[2017-02-11] MEDS ORDERED: LISINOPRIL 20 MG TABLET PO SCH (09:00)
[2017-02-11] MEDS ORDERED: PROPRANOLOL HCL 20 MG TABLET PO SCH (09:00)
[2017-02-11 17:43] VITALS: BP 150/91
[2017-02-11] MEDS: ZOLPIDEM TARTRATE 10 MG TABLET PO PRN (20:44)
[2017-02-12 03:33] VITALS: BP 138/87
[2017-02-12 07:59] LABS: BASOPHILS % (AUTO) 0.5 % (0.0-2.0); EOSINOPHILS % (AUTO) 0.9 % (1.0-6.0); HEMATOCRIT 41.6 % (36-46); HEMOGLOBIN 14.3 g/dL (12.0-16.0); LYMPHOCYTES # (AUTO) 2.1 K/uL (1.0-4.8); LYMPHOCYTES % (AUTO) 26.7 % (22.0-44.0); MEAN CORPUSCULAR HEMOGLOBIN 31.4 pg (26.0-34.0); MEAN CORPUSCULAR HGB CONC 34.3 G/dL (31.0-37.0); MEAN CORPUSCULAR VOLUME 92 fL (80-100); MONOCYTES # (AUTO) 0.6 K/uL (0.1-1.0); MONOCYTES % (AUTO) 7.1 % (2.0-9.0); NEUTROPHILS # (AUTO) 5.2 K/uL (1.8-7.7); NEUTROPHILS % (AUTO) 64.8 % (40.0-70.0); PLATELET COUNT (AUTO) 258 K/uL (150-450); RED BLOOD CELL COUNT(AUTO) 4.54 MIL/uL (4.00-5.20); RED CELL DISTRIBUTION WIDTH 14.3 % (11.5-14.5)
[2017-02-12] MEDS: GABAPENTIN 300 MG CAPSULE PO SCH (08:33)
[2017-02-12] MEDS: PROPRANOLOL HCL 20 MG TABLET PO SCH (08:34)
[2017-02-12] MEDS: THIAMINE HCL 100 MG TABLET PO SCH ×2 (08:34→16:47)
[2017-02-12] MEDS: AmLODIPine BESYLATE 10 MG TABLET PO SCH (08:34)
[2017-02-12] MEDS: FOLIC ACID 1 MG TABLET PO SCH (08:34)
[2017-02-12] MEDS: LISINOPRIL 20 MG TABLET PO SCH (08:34)
[2017-02-12 08:46] LABS: ALANINE AMINOTRANSFERASE 38 U/L (12-78); ALBUMIN 3.9 g/dL (3.4-5.0); ALKALINE PHOSPHATASE 140 U/L (46-116); ANION GAP 11 mmol/L (8-16); ASPARTATE AMINOTRANSFERASE 27 U/L (15-37); BILIRUBIN,TOTAL 0.6 mg/dL (0.1-1.0); CALCIUM, TOTAL 9.7 mg/dL (8.8-10.5); CARBON DIOXIDE 27 mmol/L (22-29); CHLORIDE 104 mmol/L (98-107); CHOL/HDL RATIO 3.7 (3.9-5.7); CHOLESTEROL 176 mg/dL (131-200); FREE T4 (FREE THYROXINE) 1.17 ng/dL (0.76-1.46); GLOMERULAR FILTR. RATE CALC > 60 mL/min (>60); GLUCOSE,RANDOM 114 mg/dL (70-110); HDL CHOLESTEROL 47 mg/dL (40-60); LDL CHOL (CALC.) 112 mg/dL (0-130); POTASSIUM 3.7 mmol/L (3.5-5.1); SODIUM SERUM 142 mmol/L (136-145); THYROID STIMULATING HORMONE 0.78 uIU/mL (0.36-3.74); TOTAL PROTEIN, SERUM 8.2 g/dL (6.4-8.2); TRIGLYCERIDES 84 mg/dL (15-150); UREA NITROGEN, BLOOD 17 mg/dL (7-18)
[2017-02-12 09:06] VITALS: BP 158/97
[2017-02-12 13:51] VITALS: BP 143/98
[2017-02-12 16:57] VITALS: BP 154/97
[2017-02-12] MEDS: QUEtiapine FUMARATE 200 MG TABLET PO SCH (20:10)
[2017-02-12 21:10] VITALS: BP 127/66
[2017-02-13 00:27] VITALS: BP 114/76
[2017-02-13] MEDS: LORazepam 2 MG TABLET PO PRN (00:28)
[2017-02-13 09:00] VITALS: BP 140/75
[2017-02-13] MEDS: THIAMINE HCL 100 MG TABLET PO SCH ×2 (09:31→16:15)
[2017-02-13] MEDS: LISINOPRIL 20 MG TABLET PO SCH (09:31)
[2017-02-13] MEDS: GABAPENTIN 300 MG CAPSULE PO SCH (09:31)
[2017-02-13] MEDS: PROPRANOLOL HCL 20 MG TABLET PO SCH (09:31)
[2017-02-13] MEDS: QUEtiapine FUMARATE 100 MG TABLET PO SCH (09:31)
[2017-02-13] MEDS: AmLODIPine BESYLATE 10 MG TABLET PO SCH (09:31)
[2017-02-13] MEDS: FOLIC ACID 1 MG TABLET PO SCH (09:31)
[2017-02-13 16:20] VITALS: BP 121/73
[2017-02-13] MEDS: ZOLPIDEM TARTRATE 10 MG TABLET PO PRN (20:13)
[2017-02-13] MEDS: QUEtiapine FUMARATE 200 MG TABLET PO SCH (20:13)
[2017-02-14 06:33] VITALS: BP 131/74
[2017-02-14] MEDS: FOLIC ACID 1 MG TABLET PO SCH (09:34)
[2017-02-14] MEDS: THIAMINE HCL 100 MG TABLET PO SCH ×2 (09:34→16:25)
[2017-02-14] MEDS: AmLODIPine BESYLATE 10 MG TABLET PO SCH (09:34)
[2017-02-14] MEDS: PROPRANOLOL HCL 20 MG TABLET PO SCH (09:34)
[2017-02-14] MEDS: QUEtiapine FUMARATE 100 MG TABLET PO SCH (09:34)
[2017-02-14] MEDS: LISINOPRIL 20 MG TABLET PO SCH (09:34)
[2017-02-14] MEDS: GABAPENTIN 300 MG CAPSULE PO SCH (09:34)
[2017-02-14 09:45] VITALS: BP 123/72
[2017-02-14 16:49] VITALS: BP 118/80
[2017-02-14] MEDS: QUEtiapine FUMARATE 200 MG TABLET PO SCH (20:14)
[2017-02-14] MEDS: ZOLPIDEM TARTRATE 10 MG TABLET PO PRN (20:14)
[2017-02-15 06:29] VITALS: BP 113/68
[2017-02-15 08:36] VITALS: BP 105/57
[2017-02-15] MEDS: AmLODIPine BESYLATE 10 MG TABLET PO SCH (08:58)
[2017-02-15] MEDS: LISINOPRIL 20 MG TABLET PO SCH (08:58)
[2017-02-15] MEDS: GABAPENTIN 300 MG CAPSULE PO SCH (08:58)
[2017-02-15] MEDS: PROPRANOLOL HCL 20 MG TABLET PO SCH (08:58)
[2017-02-15] MEDS: FOLIC ACID 1 MG TABLET PO SCH (08:58)
[2017-02-15] MEDS: QUEtiapine FUMARATE 100 MG TABLET PO SCH (08:58)
[2017-02-15] MEDS: THIAMINE HCL 100 MG TABLET PO SCH ×2 (09:00→16:11)
[2017-02-15 17:17] VITALS: BP 136/80
[2017-02-15] MEDS: TraZODone HCL 50 MG TABLET PO SCH (20:08)
[2017-02-15] MEDS: QUEtiapine FUMARATE 200 MG TABLET PO SCH (20:08)
[2017-02-15] MEDS: ZOLPIDEM TARTRATE 10 MG TABLET PO PRN (20:08)
[2017-02-16 06:59] VITALS: BP 120/78
[2017-02-16 08:15] VITALS: BP 132/86
[2017-02-16] MEDS: THIAMINE HCL 100 MG TABLET PO SCH ×2 (09:43→16:16)
[2017-02-16] MEDS: FOLIC ACID 1 MG TABLET PO SCH (09:43)
[2017-02-16] MEDS: AmLODIPine BESYLATE 10 MG TABLET PO SCH (09:43)
[2017-02-16] MEDS: PROPRANOLOL HCL 20 MG TABLET PO SCH (09:43)
[2017-02-16] MEDS: QUEtiapine FUMARATE 100 MG TABLET PO SCH (09:43)
[2017-02-16] MEDS: GABAPENTIN 300 MG CAPSULE PO SCH (09:43)
[2017-02-16] MEDS: LISINOPRIL 20 MG TABLET PO SCH (09:46)
[2017-02-16 16:17] VITALS: BP 134/90
[2017-02-16 17:16] VITALS: BP 132/88
[2017-02-16] MEDS: TraZODone HCL 50 MG TABLET PO SCH (20:38)
[2017-02-16] MEDS: QUEtiapine FUMARATE 200 MG TABLET PO SCH (21:00)
[2017-02-16] MEDS: ZOLPIDEM TARTRATE 10 MG TABLET PO PRN (21:17)
[2017-02-17 06:45] VITALS: BP 134/82
[2017-02-17 08:30] VITALS: BP 135/92
[2017-02-17] MEDS: THIAMINE HCL 100 MG TABLET PO SCH ×2 (08:38→16:39)
[2017-02-17] MEDS: PROPRANOLOL HCL 20 MG TABLET PO SCH (08:38)
[2017-02-17] MEDS: AmLODIPine BESYLATE 10 MG TABLET PO SCH (08:38)
[2017-02-17] MEDS: LISINOPRIL 20 MG TABLET PO SCH (08:39)
[2017-02-17] MEDS: GABAPENTIN 300 MG CAPSULE PO SCH (08:39)
[2017-02-17] MEDS: FOLIC ACID 1 MG TABLET PO SCH (08:39)
[2017-02-17] MEDS: QUEtiapine FUMARATE 100 MG TABLET PO SCH (08:39)
[2017-02-17] MEDS: LORazepam 2 MG TABLET PO PRN (08:52)
[2017-02-17 16:05] VITALS: BP 101/75
[2017-02-17] MEDS: ZOLPIDEM TARTRATE 10 MG TABLET PO PRN (20:54)
[2017-02-17] MEDS: TraZODone HCL 50 MG TABLET PO SCH (20:54)
[2017-02-17] MEDS: QUEtiapine FUMARATE 200 MG TABLET PO SCH (20:54)
[2017-02-18 08:27] VITALS: BP 125/74
[2017-02-18] MEDS: AmLODIPine BESYLATE 10 MG TABLET PO SCH (09:17)
[2017-02-18] MEDS: THIAMINE HCL 100 MG TABLET PO SCH ×2 (09:18→16:21)
[2017-02-18] MEDS: QUEtiapine FUMARATE 100 MG TABLET PO SCH (09:18)
[2017-02-18] MEDS: FOLIC ACID 1 MG TABLET PO SCH (09:18)
[2017-02-18] MEDS: LISINOPRIL 20 MG TABLET PO SCH (09:18)
[2017-02-18] MEDS: PROPRANOLOL HCL 20 MG TABLET PO SCH (09:18)
[2017-02-18] MEDS: GABAPENTIN 300 MG CAPSULE PO SCH (09:18)
[2017-02-18 16:40] VITALS: BP 115/68
[2017-02-18] MEDS: TraZODone HCL 50 MG TABLET PO SCH (20:29)
[2017-02-18] MEDS: QUEtiapine FUMARATE 200 MG TABLET PO SCH (21:00)
[2017-02-18] MEDS: ZOLPIDEM TARTRATE 10 MG TABLET PO PRN (21:02)
[2017-02-19 06:07] VITALS: BP 114/70
[2017-02-19 08:39] VITALS: BP 142/79
[2017-02-19] MEDS: LORazepam 2 MG TABLET PO PRN (08:54)
[2017-02-19] MEDS: PROPRANOLOL HCL 20 MG TABLET PO SCH (09:25)
[2017-02-19] MEDS: QUEtiapine FUMARATE 100 MG TABLET PO SCH (09:25)
[2017-02-19] MEDS: FOLIC ACID 1 MG TABLET PO SCH (09:25)
[2017-02-19] MEDS: THIAMINE HCL 100 MG TABLET PO SCH ×2 (09:25→16:33)
[2017-02-19] MEDS: AmLODIPine BESYLATE 10 MG TABLET PO SCH (09:25)
[2017-02-19] MEDS: LISINOPRIL 20 MG TABLET PO SCH (09:25)
[2017-02-19] MEDS: GABAPENTIN 300 MG CAPSULE PO SCH (09:25)
[2017-02-19 16:35] VITALS: BP 110/62
[2017-02-19] MEDS: TraZODone HCL 50 MG TABLET PO SCH (20:25)
[2017-02-19] MEDS: QUEtiapine FUMARATE 200 MG TABLET PO SCH (20:26)
[2017-02-19] MEDS: ZOLPIDEM TARTRATE 10 MG TABLET PO PRN (21:03)
[2017-02-20 06:32] VITALS: BP 114/63
[2017-02-20 08:39] VITALS: BP 151/90
[2017-02-20] MEDS: THIAMINE HCL 100 MG TABLET PO SCH ×2 (08:48→16:31)
[2017-02-20] MEDS: PROPRANOLOL HCL 20 MG TABLET PO SCH (08:48)
[2017-02-20] MEDS: LISINOPRIL 20 MG TABLET PO SCH (08:48)
[2017-02-20] MEDS: FOLIC ACID 1 MG TABLET PO SCH (08:49)
[2017-02-20] MEDS: AmLODIPine BESYLATE 10 MG TABLET PO SCH (08:49)
[2017-02-20] MEDS: GABAPENTIN 300 MG CAPSULE PO SCH (08:49)
[2017-02-20] MEDS: QUEtiapine FUMARATE 100 MG TABLET PO SCH ×2 (09:00→10:14)
[2017-02-20 16:12] VITALS: BP 120/79
== END 2017-02-20 16:40 | disposition home or self-care (01) | DRG 753 ==
LOC: EDSTATUS 20:16 → B3A 20:31
PROVIDERS: ADMIT Psychiatry & Neurology Psychiatry; ATTEND Psychiatry & Neurology Psychiatry
DX: F31.9 Bipolar disorder, unspecified (principal); E83.51 Hypocalcemia; I10 Essential (primary) hypertension; F22 Delusional disorders; K21.9 Gastro-esophageal reflux disease without esophagitis; M19.90 Unspecified osteoarthritis, unspecified site
CPT/HCPCS: 83036; 84439; 84443; 87081; 99285

== ENCOUNTER 2017-02-20 17:35 | Emergency (ER) | payer MEDICAID, OTHER ==
[~2017-02-20] VITALS: Ht 160 cm; Wt 75.0 kg
[2017-02-20] MEDS ORDERED: DIAZEPAM 5 MG TABLET PO ONE (18:45)
[2017-02-20 19:40] VITALS: BP 140/77
== END 2017-02-20 20:40 | disposition home or self-care (01) ==
LOC: EMS 17:36
DX: F41.0 Panic disorder [episodic paroxysmal anxiety] (principal); F25.9 Schizoaffective disorder, unspecified; F32.9 Major depressive disorder, single episode, unspecified; I10 Essential (primary) hypertension; K21.9 Gastro-esophageal reflux disease without esophagitis; F31.9 Bipolar disorder, unspecified
CPT/HCPCS: 99284

== ENCOUNTER 2017-02-28 13:00 | Emergency (ER) | payer OTHER ==
[~2017-02-28] VITALS: Ht 162.6 cm; Wt 71.8 kg
[~2017-02-28 13:00] MED LIST changes: -FOLI1 PO; -MULT-723 PO; -THIA100 PO
[2017-02-28 13:54] LABS: BASOPHILS # (AUTO) 0.03 K/uL (0.00-0.20); BASOPHILS % (AUTO) 0.3 % (0.0-2.0); EOSINOPHILS # (AUTO) 0.08 K/uL (0.00-0.70); EOSINOPHILS % (AUTO) 0.93 % (1.0-6.0); HEMATOCRIT 43.8 % (36-46); HEMOGLOBIN 14.7 g/dL (12.0-16.0); LYMPHOCYTES # (AUTO) 1.8 K/uL (1.0-4.8); LYMPHOCYTES % (AUTO) 20.1 % (22.0-44.0); MEAN CORPUSCULAR HEMOGLOBIN 31.5 pg (26.0-34.0); MEAN CORPUSCULAR HGB CONC 33.5 G/dL (31.0-37.0); MEAN CORPUSCULAR VOLUME 94 fL (80-100); MONOCYTES # (AUTO) 0.7 K/uL (0.1-1.0); MONOCYTES % (AUTO) 7.7 % (2.0-9.0); NEUTROPHILS # (AUTO) 6.5 K/uL (1.8-7.7); PLATELET COUNT (AUTO) 235 K/uL (150-450); RED BLOOD CELL COUNT(AUTO) 4.67 MIL/uL (4.00-5.20); RED CELL DISTRIBUTION WIDTH 14.7 % (11.5-14.5)
[2017-02-28 14:05] LABS: ANION GAP 8 mmol/L (8-16); CALCIUM, TOTAL 9.9 mg/dL (8.8-10.5); CARBON DIOXIDE 29 mmol/L (22-29); CHLORIDE 102 mmol/L (98-107); CREATININE 0.72 mg/dL (0.60-1.30); GLOMERULAR FILTR. RATE CALC > 60 mL/min (>60); GLUCOSE,RANDOM 126 mg/dL (70-110); POTASSIUM 3.7 mmol/L (3.5-5.1); SODIUM SERUM 139 mmol/L (136-145); UREA NITROGEN, BLOOD 12 mg/dL (7-18)
[2017-02-28 14:06] LABS: AMPHET/METH SCREEN,URINE NEGATIVE (NEGATIVE); BARBITURATE SCREEN, URINE NEGATIVE (NEGATIVE); BENZODIAZEPINES SCREEN,URINE NEGATIVE (NEGATIVE); CANNABINOID SCREEN,URINE NEGATIVE (NEGATIVE); COCAINE SCREEN,URINE NEGATIVE (NEGATIVE); METHADONE SCREEN, URINE NEGATIVE (NEGATIVE); OPIATE SCREEN,URINE NEGATIVE (NEGATIVE)
[2017-02-28 14:08] LABS: PHENCYCLIDINE SCREEN,URINE NEGATIVE (NEGATIVE)
[2017-02-28 14:11] LABS: ALANINE AMINOTRANSFERASE 24 U/L (12-78); ALBUMIN 4.1 g/dL (3.4-5.0); ALKALINE PHOSPHATASE 135 U/L (46-116); ASPARTATE AMINOTRANSFERASE 20 U/L (15-37); BILIRUBIN,TOTAL 0.4 mg/dL (0.1-1.0); TOTAL PROTEIN, SERUM 8.4 g/dL (6.4-8.2)
[2017-02-28] MEDS ORDERED: LORazepam 1 MG TABLET PO ONE (15:15)
[2017-02-28 15:21] VITALS: BP 131/79
== END 2017-02-28 15:33 | disposition home or self-care (01) ==
LOC: EMS 13:03
DX: F41.9 Anxiety disorder, unspecified (principal); F31.9 Bipolar disorder, unspecified; I10 Essential (primary) hypertension; K21.9 Gastro-esophageal reflux disease without esophagitis
CPT/HCPCS: 36415; 80053; 80307; 85025; 99284; G0480

== ENCOUNTER 2017-03-01 16:50 | Inpatient (IN) | payer MEDICAID, OTHER, SELFPAY ==
[~2017-03-01] VITALS: Ht 162.6 cm; Wt 68.5 kg
[2017-03-01] MEDS ORDERED: ZOLPIDEM TARTRATE 10 MG TABLET PO PRN (21:45)
[2017-03-01] MEDS ORDERED: HALOPERIDOL 5 MG TABLET PO PRN (21:45)
[2017-03-01] MEDS ORDERED: LORazepam 2 MG TABLET PO PRN (21:45)
[2017-03-01 21:54] LABS: BASOPHILS # (AUTO) 0.03 K/uL (0.00-0.20); BASOPHILS % (AUTO) 0.3 % (0.0-2.0); EOSINOPHILS # (AUTO) 0.13 K/uL (0.00-0.70); EOSINOPHILS % (AUTO) 1.54 % (1.0-6.0); HEMOGLOBIN 13.2 g/dL (12.0-16.0); LYMPHOCYTES % (AUTO) 34.9 % (22.0-44.0); MEAN CORPUSCULAR HEMOGLOBIN 31.8 pg (26.0-34.0); MEAN CORPUSCULAR HGB CONC 33.9 G/dL (31.0-37.0); MEAN CORPUSCULAR VOLUME 94 fL (80-100); MONOCYTES # (AUTO) 0.6 K/uL (0.1-1.0); NEUTROPHILS # (AUTO) 4.9 K/uL (1.8-7.7); NEUTROPHILS % (AUTO) 56.3 % (40.0-70.0); PLATELET COUNT (AUTO) 199 K/uL (150-450); RED BLOOD CELL COUNT(AUTO) 4.15 MIL/uL (4.00-5.20); RED CELL DISTRIBUTION WIDTH 14.6 % (11.5-14.5)
[2017-03-01 22:09] LABS: AMPHET/METH SCREEN,URINE NEGATIVE (NEGATIVE); BARBITURATE SCREEN, URINE NEGATIVE (NEGATIVE); BENZODIAZEPINES SCREEN,URINE NEGATIVE (NEGATIVE); CANNABINOID SCREEN,URINE NEGATIVE (NEGATIVE); COCAINE SCREEN,URINE NEGATIVE (NEGATIVE); METHADONE SCREEN, URINE NEGATIVE (NEGATIVE); OPIATE SCREEN,URINE NEGATIVE (NEGATIVE)
[2017-03-01 22:35] LABS: ANION GAP 9 mmol/L (8-16); CALCIUM, TOTAL 9.4 mg/dL (8.8-10.5); CARBON DIOXIDE 28 mmol/L (22-29); CHLORIDE 102 mmol/L (98-107); CREATININE 0.88 mg/dL (0.60-1.30); GLOMERULAR FILTR. RATE CALC > 60 mL/min (>60); GLUCOSE,RANDOM 148 mg/dL (70-110); POTASSIUM 3.4 mmol/L (3.5-5.1); SODIUM SERUM 139 mmol/L (136-145); UREA NITROGEN, BLOOD 18 mg/dL (7-18)
[2017-03-01 22:41] LABS: ALANINE AMINOTRANSFERASE 22 U/L (12-78); ALBUMIN 3.7 g/dL (3.4-5.0); ALKALINE PHOSPHATASE 122 U/L (46-116); ASPARTATE AMINOTRANSFERASE 17 U/L (15-37); BILIRUBIN,TOTAL 0.3 mg/dL (0.1-1.0); TOTAL PROTEIN, SERUM 7.6 g/dL (6.4-8.2)
[2017-03-01 22:44] LABS: PHENCYCLIDINE SCREEN,URINE NEGATIVE (NEGATIVE)
[2017-03-02] MEDS ORDERED: INFLUENZA VIRUS VACCINE QVS 2017-18 (3YR+)/PF 60 MCG/0.5 ML SYRINGE IM ONE (01:15)
[2017-03-02] MEDS ORDERED: PNEUMOCOCCAL VACCINE POLYVALENT 0.5 ML VIAL [PPSV23] IM ONE (01:15)
[2017-03-02 02:06] VITALS: BP 145/86
[2017-03-02] MEDS ORDERED: POTASSIUM CHLORIDE 20 MEQ ER TABLET PO ONE (07:00)
[2017-03-02 07:46] VITALS: BP 124/83
[2017-03-02 09:05] LABS: CHOL/HDL RATIO 3.8 (3.9-5.7)
[2017-03-02] MEDS: AmLODIPine BESYLATE 10 MG TABLET PO SCH (09:24)
[2017-03-02] MEDS: LISINOPRIL 20 MG TABLET PO SCH (09:24)
[2017-03-02 09:36] VITALS: BP 124/83
[2017-03-02] MEDS ORDERED: ACETAMINOPHEN 325 MG TABLET PO PRN ×2 (17:30→20:15)
[2017-03-02] MEDS ORDERED: IBUPROFEN 400 MG TABLET PO PRN (17:30)
[2017-03-02 17:43] VITALS: BP 132/80
[2017-03-02] MEDS ORDERED: QUEtiapine FUMARATE 200 MG TABLET PO SCH (21:00)
[2017-03-03 05:56] VITALS: BP 128/78
[2017-03-03 08:21] LABS: HEMOGLOBIN A1C 5.9 % (4.5-6.2)
[2017-03-03 08:33] LABS: FREE T4 (FREE THYROXINE) 0.96 ng/dL (0.76-1.46); THYROID STIMULATING HORMONE 0.37 uIU/mL (0.36-3.74)
[2017-03-03] MEDS: LISINOPRIL 20 MG TABLET PO SCH (08:43)
[2017-03-03] MEDS: QUEtiapine FUMARATE 100 MG TABLET PO SCH (08:43)
[2017-03-03] MEDS: AmLODIPine BESYLATE 10 MG TABLET PO SCH (08:43)
[2017-03-03 08:49] LABS: CHOL/HDL RATIO 13.1 (3.9-5.7)
[2017-03-03 10:39] VITALS: BP 129/80
[2017-03-03 14:20] VITALS: BP 125/78
[2017-03-03] MEDS: IBUPROFEN 400 MG TABLET PO PRN (14:20)
[2017-03-03 16:21] VITALS: BP 132/84
[2017-03-03] MEDS: QUEtiapine FUMARATE 200 MG TABLET PO SCH ×3 (20:20→21:00)
[2017-03-03] MEDS: ZOLPIDEM TARTRATE 10 MG TABLET PO PRN (22:12)
[2017-03-04 06:30] VITALS: BP 125/82
[2017-03-04 08:55] VITALS: BP 137/87
[2017-03-04] MEDS: QUEtiapine FUMARATE 200 MG TABLET PO SCH ×3 (09:00→20:10)
[2017-03-04] MEDS ORDERED: QUEtiapine FUMARATE 200 MG TABLET PO SCH (09:00)
[2017-03-04] MEDS: QUEtiapine FUMARATE 100 MG TABLET PO SCH (09:46)
[2017-03-04] MEDS: LISINOPRIL 20 MG TABLET PO SCH (09:47)
[2017-03-04] MEDS: AmLODIPine BESYLATE 10 MG TABLET PO SCH (09:47)
[2017-03-04 16:09] VITALS: BP 122/86
[2017-03-04 20:23] VITALS: BP 125/79
[2017-03-04] MEDS: ZOLPIDEM TARTRATE 10 MG TABLET PO PRN (20:25)
[2017-03-05] VITALS (11 sets, daily range): BP systolic 118–142; BP diastolic 73–88
[2017-03-05] MEDS: LISINOPRIL 20 MG TABLET PO SCH (07:56)
[2017-03-05] MEDS: QUEtiapine FUMARATE 300 MG TABLET PO SCH (07:56)
[2017-03-05] MEDS: AmLODIPine BESYLATE 10 MG TABLET PO SCH (07:57)
[2017-03-05] MEDS: IBUPROFEN 400 MG TABLET PO PRN (16:05)
[2017-03-05] MEDS: QUEtiapine FUMARATE 200 MG TABLET PO SCH (20:04)
[2017-03-05] MEDS: ZOLPIDEM TARTRATE 10 MG TABLET PO PRN (20:49)
[2017-03-06 00:50] VITALS: BP 135/77
[2017-03-06] MEDS: LISINOPRIL 20 MG TABLET PO SCH (08:32)
[2017-03-06] MEDS: QUEtiapine FUMARATE 300 MG TABLET PO SCH (08:32)
[2017-03-06] MEDS: AmLODIPine BESYLATE 10 MG TABLET PO SCH (08:33)
[2017-03-06 08:38] VITALS: BP 130/85
[2017-03-06 08:45] VITALS: BP 130/85
[2017-03-06 16:35] VITALS: BP 129/83
[2017-03-06 19:33] VITALS: BP 125/88
[2017-03-06] MEDS: IBUPROFEN 400 MG TABLET PO PRN (19:33)
[2017-03-06] MEDS: QUEtiapine FUMARATE 200 MG TABLET PO SCH (20:07)
[2017-03-07 02:25] VITALS: BP 130/88
[2017-03-07] MEDS: AmLODIPine BESYLATE 10 MG TABLET PO SCH (08:09)
[2017-03-07] MEDS: LISINOPRIL 20 MG TABLET PO SCH (08:09)
[2017-03-07] MEDS: QUEtiapine FUMARATE 300 MG TABLET PO SCH (08:10)
[2017-03-07] MEDS ORDERED: ONDANSETRON HCL 4 MG TABLET PO PRN (10:30)
[2017-03-07 16:00] VITALS: BP 149/88
[2017-03-07] MEDS ORDERED: CloNIDine HCL 0.1 MG TABLET PO PRN (18:45)
[2017-03-07] MEDS ORDERED: MAGNESIUM HYDROXIDE SUSPENSION 30 ML UDCUP PO PRN (19:15)
[2017-03-07 20:33] VITALS: BP 164/99
[2017-03-07 21:00] VITALS: BP 91/65
[2017-03-07] MEDS ORDERED: HALOPERIDOL 5 MG TABLET PO SCH (21:00)
[2017-03-07] MEDS ORDERED: QUEtiapine FUMARATE 200 MG TABLET PO SCH (21:00)
[2017-03-07 21:45] VITALS: BP 120/70
[2017-03-08 01:29] VITALS: BP 120/70
[2017-03-08 06:04] VITALS: BP 108/72
[2017-03-08 06:05] VITALS: BP 113/72
[2017-03-08 08:31] VITALS: BP 123/71
[2017-03-08] MEDS: LISINOPRIL 20 MG TABLET PO SCH (08:43)
[2017-03-08] MEDS: HydrOXYzine PAMOATE 25 MG CAPSULE PO SCH ×3 (08:43→16:11)
[2017-03-08] MEDS: AmLODIPine BESYLATE 10 MG TABLET PO SCH (08:43)
[2017-03-08] MEDS ORDERED: QUEtiapine FUMARATE 200 MG TABLET PO SCH (09:00)
[2017-03-08 14:04] VITALS: BP 105/64
[2017-03-08 16:00] VITALS: BP 116/76
[2017-03-08] MEDS: DOCUSATE SODIUM 100 MG CAPSULE PO SCH (16:11)
[2017-03-08] MEDS: ZOLPIDEM TARTRATE 10 MG TABLET PO PRN (21:00)
[2017-03-09 06:29] VITALS: BP 124/89
[2017-03-09 08:15] VITALS: BP 126/89
[2017-03-09] MEDS: AmLODIPine BESYLATE 10 MG TABLET PO SCH (08:34)
[2017-03-09] MEDS: HydrOXYzine PAMOATE 25 MG CAPSULE PO SCH ×3 (08:34→17:00)
[2017-03-09] MEDS: LISINOPRIL 20 MG TABLET PO SCH (08:34)
[2017-03-09] MEDS: DOCUSATE SODIUM 100 MG CAPSULE PO SCH ×2 (08:34→17:00)
[2017-03-09] MEDS ORDERED: MAGNESIUM CITRATE 300 ML ORAL SOLUTION PO PRN (10:00)
[2017-03-09 16:13] VITALS: BP 110/66
[2017-03-09] MEDS: PALIPERIDONE 3 MG ER TABLET PO SCH (20:41)
[2017-03-09] MEDS: ZOLPIDEM TARTRATE 10 MG TABLET PO PRN (22:00)
[2017-03-10 06:44] VITALS: BP 116/75
[2017-03-10 07:22] VITALS: BP 126/84
[2017-03-10 08:18] VITALS: BP 132/76
[2017-03-10] MEDS: LISINOPRIL 20 MG TABLET PO SCH (08:52)
[2017-03-10] MEDS: DOCUSATE SODIUM 100 MG CAPSULE PO SCH ×3 (08:52→16:29)
[2017-03-10] MEDS: AmLODIPine BESYLATE 10 MG TABLET PO SCH (08:54)
[2017-03-10] MEDS: HydrOXYzine PAMOATE 25 MG CAPSULE PO SCH ×3 (08:54→16:29)
[2017-03-10 12:40] VITALS: BP 126/75
[2017-03-10] MEDS: IBUPROFEN 400 MG TABLET PO PRN (12:40)
[2017-03-10] MEDS ORDERED: CAPSAICIN 0.025% 60 GM CREAM TP PRN (13:00)
[2017-03-10] MEDS: SERTRALINE HCL 50 MG TABLET PO SCH (14:04)
[2017-03-10 16:08] VITALS: BP 114/74
[2017-03-10] MEDS: PALIPERIDONE 3 MG ER TABLET PO SCH (21:07)
[2017-03-10] MEDS: ZOLPIDEM TARTRATE 10 MG TABLET PO PRN (21:07)
[2017-03-11] VITALS: BP 124/72
[2017-03-11] MEDS: DOCUSATE SODIUM 100 MG CAPSULE PO SCH ×2 (09:00→17:00)
[2017-03-11] MEDS: AmLODIPine BESYLATE 10 MG TABLET PO SCH (09:31)
[2017-03-11] MEDS: LISINOPRIL 20 MG TABLET PO SCH (09:31)
[2017-03-11] MEDS: HydrOXYzine PAMOATE 25 MG CAPSULE PO SCH ×3 (09:31→16:38)
[2017-03-11] MEDS: SERTRALINE HCL 50 MG TABLET PO SCH (09:31)
[2017-03-11 10:57] VITALS: BP 110/68
[2017-03-11 16:47] VITALS: BP 124/83
[2017-03-11] MEDS: PALIPERIDONE 3 MG ER TABLET PO SCH (20:38)
[2017-03-11] MEDS: ZOLPIDEM TARTRATE 10 MG TABLET PO PRN (20:38)
[2017-03-12 07:17] VITALS: BP 120/81
[2017-03-12 08:19] VITALS: BP 121/63
[2017-03-12] MEDS: AmLODIPine BESYLATE 10 MG TABLET PO SCH (08:40)
[2017-03-12] MEDS: HydrOXYzine PAMOATE 25 MG CAPSULE PO SCH ×3 (08:40→16:56)
[2017-03-12] MEDS: LISINOPRIL 20 MG TABLET PO SCH (08:40)
[2017-03-12] MEDS: DOCUSATE SODIUM 100 MG CAPSULE PO SCH ×2 (08:40→16:56)
[2017-03-12] MEDS: SERTRALINE HCL 50 MG TABLET PO SCH (08:40)
[2017-03-12 16:00] VITALS: BP 117/79
[2017-03-12] MEDS: PALIPERIDONE 3 MG ER TABLET PO SCH (20:16)
[2017-03-12] MEDS: ZOLPIDEM TARTRATE 10 MG TABLET PO PRN (20:28)
[2017-03-13 05:53] VITALS: BP 120/86
[2017-03-13] MEDS: SERTRALINE HCL 50 MG TABLET PO SCH (08:54)
[2017-03-13] MEDS: LISINOPRIL 20 MG TABLET PO SCH (08:54)
[2017-03-13] MEDS: AmLODIPine BESYLATE 10 MG TABLET PO SCH (08:54)
[2017-03-13] MEDS: DOCUSATE SODIUM 100 MG CAPSULE PO SCH (09:00)
[2017-03-13 09:25] VITALS: BP 115/79
[2017-03-13] MEDS: HydrOXYzine PAMOATE 25 MG CAPSULE PO SCH ×2 (10:04→13:00)
[2017-03-13] MEDS ORDERED: PALI3 PO (10:19)
[2017-03-13] MEDS ORDERED: HYDR-4031 PO (10:20)
[2017-03-13] MEDS ORDERED: SERT50TA12 PO (10:20)
[2017-03-13] MEDS ORDERED: POTASSIUM CHLORIDE 20 MEQ ER TABLET PO ONE (11:15)
== END 2017-03-13 14:05 | disposition home or self-care (01) | DRG 750 ==
LOC: EMS 16:51 → B2S 23:30
PROVIDERS: ADMIT Psychiatry & Neurology Psychiatry; ATTEND Psychiatry & Neurology Psychiatry
DX: F25.9 Schizoaffective disorder, unspecified (principal); E83.51 Hypocalcemia; R45.851 Suicidal ideations; I10 Essential (primary) hypertension; F41.9 Anxiety disorder, unspecified; I95.1 Orthostatic hypotension; K21.9 Gastro-esophageal reflux disease without esophagitis; M19.90 Unspecified osteoarthritis, unspecified site; F17.210 Nicotine dependence, cigarettes, uncomplicated; Z79.899 Other long term (current) drug therapy
CPT/HCPCS: 83036; 84132; 84439; 84443; 87081; 90471; 99285; G0480; Q0162

== ENCOUNTER 2017-03-21 16:02 | Emergency (ER) | payer MEDICAID, OTHER ==
[~2017-03-21] VITALS: Ht 160 cm; Wt 72.7 kg
[~2017-03-21 16:02] MED LIST changes: -GABA-531 PO; +HYDR-4031 PO; +PALI3 PO; -PROP20 PO; -QUET100T PO; -QUET200T PO; +SERT50TA12 PO
[2017-03-21 16:05] VITALS: BP 118/70
== END 2017-03-21 17:33 | disposition home or self-care (01) ==
LOC: EEVIPCON 16:04 → EMS 16:04
DX: F41.9 Anxiety disorder, unspecified (principal); F32.9 Major depressive disorder, single episode, unspecified; I10 Essential (primary) hypertension; F17.210 Nicotine dependence, cigarettes, uncomplicated
CPT/HCPCS: 99284

== ENCOUNTER 2017-03-23 10:18 | Emergency (ER) | payer OTHER ==
[~2017-03-23] VITALS: Ht 162.6 cm; Wt 68.2 kg
[2017-03-23 10:40] VITALS: BP 119/86
== END 2017-03-23 12:06 | disposition home or self-care (01) ==
LOC: EMS 10:19
DX: F41.9 Anxiety disorder, unspecified (principal); F25.9 Schizoaffective disorder, unspecified; F32.9 Major depressive disorder, single episode, unspecified; F17.210 Nicotine dependence, cigarettes, uncomplicated
CPT/HCPCS: 99284

== ENCOUNTER 2019-09-27 17:18 | Inpatient (IN) | payer MEDICAID, OTHER ==
[~2019-09-27] VITALS: Ht 162.6 cm; Wt 66.0 kg
[~2019-09-27 17:18] MED LIST changes: +AMLO-258 PO; -AMLO-512 PO; -PALI3 PO; +PALI3TAB14 PO
[2019-09-27 18:55] LABS: BASOPHILS % (AUTO) 0.3 % (0.0-2.0); EOSINOPHILS % (AUTO) 1.9 % (1.0-6.0); HEMATOCRIT 39.4 % (36-46); LYMPHOCYTES # (AUTO) 1.8 K/uL (1.0-4.8); LYMPHOCYTES % (AUTO) 23.2 % (22.0-44.0); MEAN CORPUSCULAR HEMOGLOBIN 31.4 pg (26.0-34.0); MEAN CORPUSCULAR HGB CONC 32.9 G/dL (31.0-37.0); MEAN CORPUSCULAR VOLUME 96 fL (80-100); MONOCYTES # (AUTO) 0.6 K/uL (0.1-1.0); MONOCYTES % (AUTO) 7.9 % (2.0-9.0); NEUTROPHILS # (AUTO) 5.1 K/uL (1.8-7.7); NEUTROPHILS % (AUTO) 66.7 % (40.0-70.0); PLATELET COUNT (AUTO) 251 K/uL (150-450); RED BLOOD CELL COUNT(AUTO) 4.13 MIL/uL (4.00-5.20); RED CELL DISTRIBUTION WIDTH 14.9 % (11.5-14.5)
[2019-09-27 19:09] LABS: ANION GAP 5 mmol/L (8-16); CALCIUM, TOTAL 9.3 mg/dL (8.8-10.5); CARBON DIOXIDE 30 mmol/L (22-29); CHLORIDE 105 mmol/L (98-107); CREATININE 0.75 mg/dL (0.60-1.30); GLOMERULAR FILTR. RATE CALC > 60 mL/min (>60); GLUCOSE,RANDOM 99 mg/dL (70-110); POTASSIUM 4.1 mmol/L (3.5-5.1); SODIUM SERUM 140 mmol/L (136-145); UREA NITROGEN, BLOOD 8 mg/dL (7-18)
[2019-09-27 19:15] LABS: ALANINE AMINOTRANSFERASE 22 U/L (12-78); ALBUMIN 3.1 g/dL (3.4-5.0); ALKALINE PHOSPHATASE 150 U/L (46-116); ASPARTATE AMINOTRANSFERASE 20 U/L (15-37); BILIRUBIN,TOTAL 0.2 mg/dL (0.1-1.0); TOTAL PROTEIN, SERUM 7.1 g/dL (6.4-8.2)
[2019-09-27 19:18] LABS: LITHIUM 0.48 mmol/L (0.60-1.20)
[2019-09-27] MEDS ORDERED: ZOLPIDEM TARTRATE 10 MG TABLET PO PRN (20:00)
[2019-09-27] MEDS: LORazepam 2 MG TABLET PO PRN (20:29)
[2019-09-27] MEDS ORDERED: ONDANSETRON HCL 4 MG TABLET PO PRN (21:30)
[2019-09-27] MEDS ORDERED: LOPERAMIDE HCL 2 MG CAPSULE PO PRN (21:30)
[2019-09-27] MEDS ORDERED: MAG HYDROX/AL HYDROX/SIMETH ES 30 ML SUSPENSION UDCUP PO PRN (21:30)
[2019-09-27] MEDS ORDERED: ALBUTEROL SULFATE HFA 90 MCG/PUFF 8 GM INHALER IH PRN (21:30)
[2019-09-27] MEDS ORDERED: PETROLATUM,WHITE 28 GM JELLY TP PRN (21:30)
[2019-09-27] MEDS ORDERED: ACETAMINOPHEN 325 MG TABLET PO PRN (21:30)
[2019-09-27] MEDS ORDERED: MAGNESIUM HYDROXIDE SUSPENSION 30 ML UDCUP PO PRN (21:30)
[2019-09-27] MEDS ORDERED: GuaiFENesin/D-METHORPHAN [SUGAR-FREE] 200-20MG/10 ML SYRUP UDCUP PO PRN (21:30)
[2019-09-27] MEDS ORDERED: DOCUSATE SODIUM 100 MG CAPSULE PO PRN (21:30)
[2019-09-27] MEDS ORDERED: CloNIDine HCL 0.1 MG TABLET PO PRN (21:30)
[2019-09-27] MEDS ORDERED: NICOTINE 14 MG/24 HOUR PATCH TD PRN (21:30)
[2019-09-27] MEDS: HALOPERIDOL 5 MG TABLET PO PRN (21:39)
[2019-09-28 00:15] VITALS: BP 151/72
[2019-09-28] MEDS: LORazepam 2 MG TABLET PO PRN ×2 (01:40→19:14)
[2019-09-28] MEDS ORDERED: ONDANSETRON HCL 4 MG TABLET PO PRN (07:30)
[2019-09-28] MEDS ORDERED: DOCUSATE SODIUM 100 MG CAPSULE PO PRN (07:30)
[2019-09-28] MEDS ORDERED: PETROLATUM,WHITE 28 GM JELLY TP PRN (07:30)
[2019-09-28] MEDS ORDERED: NICOTINE 14 MG/24 HOUR PATCH TD PRN (07:30)
[2019-09-28] MEDS ORDERED: CloNIDine HCL 0.1 MG TABLET PO PRN (07:30)
[2019-09-28] MEDS ORDERED: MAGNESIUM HYDROXIDE SUSPENSION 30 ML UDCUP PO PRN (07:30)
[2019-09-28] MEDS ORDERED: GuaiFENesin/D-METHORPHAN [SUGAR-FREE] 200-20MG/10 ML SYRUP UDCUP PO PRN (07:30)
[2019-09-28] MEDS ORDERED: IBUPROFEN 400 MG TABLET PO PRN (07:30)
[2019-09-28] MEDS ORDERED: LOPERAMIDE HCL 2 MG CAPSULE PO PRN (07:30)
[2019-09-28] MEDS ORDERED: ALBUTEROL SULFATE HFA 90 MCG/PUFF 8 GM INHALER IH PRN (07:30)
[2019-09-28] MEDS ORDERED: MAG HYDROX/AL HYDROX/SIMETH ES 30 ML SUSPENSION UDCUP PO PRN (07:30)
[2019-09-28] MEDS ORDERED: ACETAMINOPHEN 325 MG TABLET PO PRN (07:30)
[2019-09-28] MEDS: LISINOPRIL 20 MG TABLET PO SCH (08:09)
[2019-09-28] MEDS: AmLODIPine BESYLATE 10 MG TABLET PO SCH (08:09)
[2019-09-28] MEDS: BACITRACIN 28.4 GM OINTMENT TP SCH ×2 (09:15→18:18)
[2019-09-28 13:53] VITALS: BP 142/65
[2019-09-28 16:01] VITALS: BP 159/95
[2019-09-28] MEDS ORDERED: OLANZapine 2.5 MG TABLET PO SCH (21:00)
[2019-09-28] MEDS: TEMAZEPAM 15 MG CAPSULE PO SCH (21:48)
[2019-09-29 00:15] VITALS: BP 108/69
[2019-09-29] MEDS: LORazepam 2 MG TABLET PO PRN ×3 (00:42→21:37)
[2019-09-29 08:07] VITALS: BP 101/58
[2019-09-29] MEDS: BACITRACIN 28.4 GM OINTMENT TP SCH ×2 (08:11→16:57)
[2019-09-29] MEDS: AmLODIPine BESYLATE 10 MG TABLET PO SCH (08:11)
[2019-09-29] MEDS: LISINOPRIL 20 MG TABLET PO SCH (08:11)
[2019-09-29 08:24] VITALS: BP 139/73
[2019-09-29 16:08] VITALS: BP 134/75
[2019-09-29] MEDS: TEMAZEPAM 15 MG CAPSULE PO SCH (20:36)
[2019-09-29] MEDS ORDERED: OLANZapine 5 MG TABLET PO SCH (21:00)
[2019-09-29] MEDS: HALOPERIDOL 5 MG TABLET PO PRN (22:25)
[2019-09-30 01:06] VITALS: BP 131/95
[2019-09-30 08:23] VITALS: BP 100/58
[2019-09-30 08:45] VITALS: BP 138/87
[2019-09-30] MEDS: AmLODIPine BESYLATE 10 MG TABLET PO SCH (08:47)
[2019-09-30] MEDS: BACITRACIN 28.4 GM OINTMENT TP SCH ×2 (08:47→17:00)
[2019-09-30] MEDS: LISINOPRIL 20 MG TABLET PO SCH (08:52)
[2019-09-30] MEDS: LORazepam 2 MG TABLET PO PRN (09:20)
[2019-09-30 16:03] VITALS: BP 110/62
[2019-09-30] MEDS: RisperiDONE 1 MG TABLET PO SCH (17:47)
[2019-09-30] MEDS: IBUPROFEN 400 MG TABLET PO PRN (18:15)
[2019-09-30] MEDS: TEMAZEPAM 15 MG CAPSULE PO SCH (21:08)
[2019-09-30] MEDS: HALOPERIDOL 5 MG TABLET PO PRN (21:36)
[2019-10-01] MEDS: LORazepam 2 MG TABLET PO PRN (00:24)
[2019-10-01 00:45] VITALS: BP 105/68
[2019-10-01] MEDS: AmLODIPine BESYLATE 10 MG TABLET PO SCH (08:19)
[2019-10-01] MEDS: LISINOPRIL 20 MG TABLET PO SCH (08:19)
[2019-10-01] MEDS: BACITRACIN 28.4 GM OINTMENT TP SCH ×2 (08:19→17:39)
[2019-10-01] MEDS: RisperiDONE 1 MG TABLET PO SCH ×2 (08:20→16:33)
[2019-10-01 08:26] VITALS: BP 146/92
[2019-10-01] MEDS: IBUPROFEN 400 MG TABLET PO PRN (10:46)
[2019-10-01 16:01] VITALS: BP 153/88
[2019-10-01] MEDS: TEMAZEPAM 15 MG CAPSULE PO SCH (19:59)
== END 2019-10-01 23:00 | disposition short-term general hospital (02) | DRG 750 ==
LOC: EMS 17:18 → B3A 20:00
PROVIDERS: ADMIT Psychiatry & Neurology Child & Adolescent Psychiatry; ATTEND Psychiatry & Neurology Psychiatry
DX: F20.9 Schizophrenia, unspecified (principal); I10 Essential (primary) hypertension; R45.851 Suicidal ideations; Z81.8 Family history of other mental and behavioral disorders; M19.90 Unspecified osteoarthritis, unspecified site; G20 Parkinson's disease; F10.10 Alcohol abuse, uncomplicated; F41.9 Anxiety disorder, unspecified; X58.XXXA Exposure to other specified factors, initial encounter; Y93.89 Activity, other specified; Y92.89 Other specified places as the place of occurrence of the external cause; Y99.8 Other external cause status; S00.12XA Contusion of left eyelid and periocular area, initial encounter; S00.11XA Contusion of right eyelid and periocular area, initial encounter
CPT/HCPCS: 70450; 70486; 87081; G0480